=== PATIENT | male | born 1975 | race Caucasian/White ===

== ENCOUNTER 2019-09-04 22:42 | Emergency (ER) | payer OTHER, SELFPAY ==
[2019-09-04 22:43] VITALS: BP 177/113; PULSE 84; RESP 22; TEMP 36.9; BMI 29.0
--- NOTE | 2019-09-04 22:52 | RAD_ITS ---
STUDY: X-RAY CHEST REASON FOR EXAM: Male, 44 years old. Chest pain. TECHNIQUE: Frontal chest. COMPARISON: 07/27/2013 FINDINGS: No apparent pneumothorax, pneumonia, pleural effusion, or edema. Cardiac silhouette, celso and mediastinal contours are within normal limits. No acute osseous abnormality. No evidence of free air under the diaphragm. RAD/Chest 1 View (Portable) IMPRESSION: Negative chest radiograph. Electronically Signed: Munir Caba, at 23:05 EST Tel , Service support ,
--- NOTE | 2019-09-04 22:52 | EKG12_ITS ---
Test Reason : CP Blood Pressure : / mmHG Vent. Rate : 077 BPM Atrial Rate : 077 BPM P-R Int : 186 ms QRS Dur : 124 ms QT Int : 382 ms P-R-T Axes : 043 002 048 degrees QTc Int : 432 ms Normal sinus rhythm Non-specific intra-ventricular conduction delay Borderline ECG Confirmed by NADIRA MADRID, ANGI ([id number]), associate entertainment editor JAUN AMEZQUITA ([id number]) on 09/06/2019 1:49:38 PM Referred By: DC Confirmed By:ANGI WADDELL MD
[2019-09-04 23:11] LABS: Absolute Lymphocyte Count 2.13 X10^3/uL (0.83-4.51); Basophil# 0.04 X10^3/uL; Basophil% 0.8 % (0-1); Eosinophil# 0.18 X10^3/uL; Eosinophils% 3.5 % (0-5); Hematocrit 44.4 % (40-54); Hemoglobin 14.6 g/dL (13.0-16.5); Lymphocyte # 2.13 X10^3/ul (4.0); Lymphocyte % 41.5 % (19-41); Mean Corp Hgb Conc 32.9 g/dL (32-36); Mean Corpuscular Hgb 29.7 pg (27.0-32.0); Mean Corpuscular Volume 90.4 fL (80-94); Mean Platelet Vol. 8.8 fl (6.2-12.0); Monocyte# 0.72 X10^3/uL; NRBC Flagged by Analyzer 0 % (0-5); Neutrophil # 2.04 X10^3/uL (2.7-7.7); Neutrophil % 39.8 % (47-70); Platelet Count 279 K/mm3 (150-450); RBC Distribution Width CV 12.8 % (11.6-14.6); Red Blood Count 4.91 M/mm3 (4.6-6.2); White Blood Count 5.1 K/mm3 (4.4-11.0)
[2019-09-04 23:27] LABS: Anion Gap 5 (5-15); BUN 20 mg/dL (7-18); BUN/Creat Ratio 19.6 RATIO (10-20); Calcium,Total 8.6 mg/dL (8.5-10.1); Chloride 108 mmol/L (98-107); Creatinine, Serum 1.02 mg/dL (0.70-1.30); EST Glomerular Filtration Rate 84 mL/min (>60); Est Glom Filt Rate - Afr Amer 101 mL/min (>60); Estimated Creatinine Clearance 90.49 ml/min; Glucose 120 mg/dL (74-106); Potassium 3.5 mmol/L (3.5-5.1); Sodium Level 142 mmol/L (136-145)
[2019-09-04 23:45] VITALS: BP 139/96
--- NOTE | 2019-09-05 00:19 | ED.DCSUM_ITS ---
- ER Visit Summary Date of Service: 09/05/19 Chief Complaint: Chest pain History of Present Illness: The patient is a 44 M who reports 10 minutes of chest pain prior to arrival while he was driving home from a green party in [place]. He felt lightheaded and had a weird taste in his mouth. He never had this be fore. Denies any past medical history. Non-smoker. Physical Examination: Blood pressure 177/113. Otherwise vitals unremarkable. Heart regular. Lungs clear. Extremities nontender with no edema. Pulses strong and equal. Test Results: EKG showed sinus rhythm at a rate of 77. No sign of ischemia or infarction pattern. Chest x-ray normal. Troponin and d-dimer negative. CBC and BMP unremarkable. Emergency Department Course and Treatment: Patient presents with atypical chest pain. This is likely anxiety or vasovagal. His work-up was unremarkable. He is low risk for DVT and PE. No further imaging pursued. Patient declined repeat troponin. Risks were discussed. Patient will follow-up as an outpa tient. Return for any new or worsening issues. Treatment Plan: As above Disposition: Discharge Impression: 1. Chest pain This note was generated with [employer] dictation software. It may contain incorrect words, spelling, and punctuation that were not noted in review of the chart prior to signing ED Disposition - Plan for ED Patient: Referrals: Cindy Thompson DO [Primary Care Provider] -
--- NOTE | 2019-09-05 00:21 | ED.DEP ---
ED Disposition - Plan for ED Patient: Instructions: CHEST PAIN, Uncertain Cause Referrals: Cindy Thompson DO [Primary Care Provider] -
[2019-09-05 00:24] VITALS: BP 146/74; PULSE 81; RESP 18; O2SAT 99
--- NOTE | 2019-09-05 00:25 | ED.RN ---
THIS NURSE REVIEWED D/C INSTRUCTIONS WITH PT. PT VERBALIZED UNDERSTANDING OF INSTRUCTIONS. IV D/C. IV CATHETER INTACT. PT TOLERATED WELL. PT DENIES FURTHER NEEDS OR QUESTIONS AT THIS TIME.
== END 2019-09-05 00:25 | disposition home or self-care (01) ==
LOC: ED 23:06
PROVIDERS: Emergency Provider Emergency Medicine; Family Provider Internal Medicine; PCP Internal Medicine
DX: R07.89 Other chest pain (principal); R06.00 Dyspnea, unspecified; R05 Cough; R42 Dizziness and giddiness
CPT/HCPCS: 71045; 80048; 84484; 85025; 85379; 93005; 99284

== ENCOUNTER → 2022-04-25 | Outpatient (CLI) | payer OTHER, SELFPAY ==
[2022-04-25 15:30] LABS: Mucous, Urine 0 SEEN /hpf (<or=2+); Squamous Epithelial Cells - UA 0 SEEN /hpf (0-5)
[2022-04-25 17:30] LABS: Color, Urine Yellow (Yellow); Glucose, Dipstick Normal (Normal); Ketone-Dipstick Negative (Negative); Leukocyte Esterase-Dipstick 25 /ul (Negative); Nitrite-Dipstick Negative (Negative); Occult Blood-Urine 250 /ul (Negative); Protein-Dipstick 15 mg/dl (Negative); Specific Gravity, Urine 1.025 (1.002-1.030); Urine Bilirubin Dipstick Negative (Negative); Urine Clarity Clear (Clear); Urine Urobilinogen Normal (Normal)
[2022-04-25 17:48] LABS: Absolute Lymphocyte Count 1.45 X10^3/uL (0.83-4.51); Basophil# 0.04 X10^3/uL; Basophil% 0.6 % (0-1); Eosinophils% 1.4 % (0-5); Hematocrit 47.8 % (40-54); Hemoglobin 15.6 g/dL (13.0-16.5); Lymphocyte # 1.45 X10^3/ul (0.83-4.51); Lymphocyte % 20.3 % (19-41); Mean Corp Hgb Conc 32.6 g/dL (32-36); Mean Corpuscular Hgb 30.2 pg (27.0-32.0); Mean Corpuscular Volume 92.5 fL (80-94); Mean Platelet Vol. 9.1 fl (6.2-12.0); Monocyte# 0.52 X10^3/uL; Monocyte% 7.3 % (0-10); NRBC Flagged by Analyzer 0 % (0-5); Neutrophil # 4.99 X10^3/uL (2.7-7.7); Platelet Count 344 K/mm3 (150-450); RBC Distribution Width CV 12.6 % (11.6-14.6); RBC Distribution Width SD 43.3 fl (35.1-43.9); Red Blood Count 5.17 M/mm3 (4.6-6.2); White Blood Count 7.1 K/mm3 (4.4-11.0)
[2022-04-25 17:51] LABS: Bacteria 1+ /hpf (None Seen); Red Blood Cells-Urine > 100 SEEN /hpf (0-5); White Blood Cells 0-5 SEEN /hpf (0-5)
[2022-04-25 18:11] LABS: Microalbumin,Random Urine 32.7 mg/L (NO RANGE EST.); Microalbumin:Creatinine Ratio 21.1 mg/g CRE (<30 mg/g CRE)
[2022-04-25 18:13] LABS: ALB/GLOB Ratio 1.1 RATIO (0.9-2.4); AST(SGOT) 24 U/L (15-37); Alanine Aminotransfer ALT/SGPT 46 U/L (16-61); Albumin, Serum 4.1 g/dL (3.2-5.0); Alkaline Phosphatase 76 U/L (45-117); Anion Gap 6 (5-15); BUN 22 mg/dL (7-18); BUN/Creat Ratio 25.7 RATIO (10-20); Calcium,Total 9.5 mg/dL (8.5-10.1); Chloride 108 mmol/L (98-107); Cholesterol 231 mg/dL (200); Creatinine, Serum 0.86 mg/dL (0.70-1.30); EST Glomerular Filtration Rate 101 mL/min (>60); Est Glom Filt Rate - Afr Amer 123 mL/min (>60); Globulin 3.8 g/dL (2.2-4.2); Glucose 90 mg/dL (74-106); High Density Lipoprotein 59 mg/dL; Potassium 3.8 mmol/L (3.5-5.1); Protein, Total 7.9 g/dL (6.4-8.2); Sodium Level 140 mmol/L (136-145); Thyroid Stim Hormone (TSH) 1.57 uIU/mL (0.358-3.74); Triglycerides 199 mg/dL; Troponin-I HS 4 pg/mL (3.0-78.0); Very Low Density Lipoprotein 40 mg/dL (5-40)
== END | disposition home or self-care (01) ==
LOC: MTLAB 15:25
PROVIDERS: PCP Internal Medicine; Referring Provider Internal Medicine; Visit Provider Internal Medicine
DX: R03.0 Elevated blood-pressure reading, without diagnosis of hypertension (principal); R00.2 Palpitations
CPT/HCPCS: 36415; 80053; 80061; 81001; 82043; 82570; 84443; 84484; 85025

== ENCOUNTER → 2022-05-13 | Outpatient (CLI) | payer OTHER, SELFPAY | END | disposition home or self-care (01) | PROVIDERS: PCP Internal Medicine; Referring Provider Internal Medicine; Visit Provider Internal Medicine | DX: R00.2 Palpitations (principal) | CPT/HCPCS: 93225; 93226 ==

== ENCOUNTER → 2022-05-15 | Outpatient (CLI) | payer OTHER, SELFPAY ==
--- NOTE | 2022-05-15 09:02 | ECHOD_ITS ---
Reason For Study: PALPITATIONS Procedure This was a 2D Doppler, Color Flow transthoracic echocardiogram. The exam was of adequate technical quality. Exam performed in department. Left Ventricle Normal LV size. Left ventricular systolic function is normal. The estimated ejection fraction is 55 %. No evidence for diastolic dysfunction. No regional wall motion abnormalities noted. Right Ventricle Normal RV size. Normal systolic function. Atria Normal left atrium. Normal right atrium. No doppler evidence for ASD. Mitral Valve There is no mitral annular calcification. Normal mitral valve. Trivial mitral valve insufficiency. Tricuspid Valve Normal tricuspid valve. Trivial tricuspid valve insufficiency. Right ventricular systolic pressure estimated to be 22 mmHg. Aortic Valve Trisinus/trileaflet aortic valve. Normal aortic valve. 2D echocardiographic images appear compatible with aortic annular calcification. Pulmonic Valve The pulmonic valve is not well visualized. Trivial pulmonic valve insufficiency. Great Vessels Normal sized aortic root. Pericardium/Pleural No pericardial effusion. MMode/2D Measurements & Calculations LVIDd: 5.6 cm IVSd: 0.94 cm Ao root diam: 3.5 cm LVIDs: 4.3 cm LVPWd: 0.79 cm RVDd: 4.1 cm FS: 22.3 % LAV(MOD-sp4): 40.6 ml LVAd ap4: 39.5 cm2 SV(MOD-sp4): 72.8 ml LVLd ap4: 9.1 cm EDV(MOD-sp4): 141.3 ml EDV(sp4-el): 146.3 ml LVAs ap4: 24.9 cm2 LVLs ap4: 7.8 cm ESV(MOD-sp4): 68.5 ml ESV(sp4-el): 67.4 ml EF(MOD-sp4): 51.5 % EF(sp4-el): 53.9 % SV(sp4-el): 78.9 ml LA A4 area: 17.2 cm2 LA dimension(2D): 3.7 cm RA A4 area: 16.9 cm2 Time Measurements MV dec time: 0.27 sec Doppler Measurements & Calculations MV E max vahe: 53.2 cm/sec Lat Peak E' Vahe: 7.5 cm/sec Med Peak E' Vahe: 8.0 cm/sec MV A max vahe: 56.1 cm/sec E/E' lat: 7.1 E/E' med: 6.6 MV E/A: 0.95 MV V2 max: 70.2 cm/sec Ao V2 max: 130.9 cm/sec MV max P.0 mmHg MV dec slope: 224.5 cm/sec2 Ao max P.9 mmHg MV V2 mean: 47.1 cm/sec Ao V2 mean: 92.0 cm/sec MV mean P.96 mmHg Ao mean P.9 mmHg MV V2 VTI: 21.5 cm Ao V2 VTI: 27.2 cm LV V1 max: 77.9 cm/sec PA V2 max: 143.3 cm/sec TR max vahe: 215.2 cm/sec LV V1 max P.4 mmHg PA V2 mean: 92.9 cm/sec TR max P.5 mmHg LV V1 mean P.2 mmHg LV V1 mean: 51.2 cm/sec LV V1 VTI: 17.3 cm ECHO/Echo Complete Interpretation Summary Left ventricular systolic function is normal. The estimated ejection fraction is 55 %. Trivial mitral valve insufficiency. Trivial tricuspid valve insufficiency. 2D echocardiographic images appear compatible with aortic annular calcification . Trivial pulmonic valve insufficiency. Right ventricular systolic pressure estimated to be 22 mmHg. No evidence for diastolic dysfunction. Ordering Physician: Cindy Thompson Referring Physician: Cindy Thompson M.D. Performed By: Padmini Whiting RCS
== END | disposition home or self-care (01) ==
PROVIDERS: PCP Internal Medicine; Visit Provider Internal Medicine
DX: R00.2 Palpitations (principal)
CPT/HCPCS: 93306

== ENCOUNTER → 2023-07-02 | Outpatient (CLI) | payer OTHER, SELFPAY ==
--- NOTE | 2023-07-02 09:40 | ECHOD_ITS ---
Reason For Study: Syncope Procedure This was a 2D Doppler, Color Flow transthoracic echocardiogram. Myocardial strain analysis was performed in this exam to aid in the assessment of cardiac function. Exam performed in department. Left Ventricle Normal LV size. Mild global left ventricular systolic dysfunction. The left ventricular ejection fraction is 50 %. Stage 1 diastolic dysfunction. There is mild global hypokinesis of the left ventricle. Right Ventricle Normal RV size. Normal systolic function. Atria Normal left atrium. Normal right atrium. Mitral Valve Normal mitral valve. Tricuspid Valve Normal tricuspid valve. Aortic Valve Normal aortic valve. Trisinus/trileaflet aortic valve. Pulmonic Valve Normal pulmonic valve. Mild (1+) pulmonic valve insufficiency. Great Vessels Normal aortic root. The pulmonary artery is normal size. Normal inferior vena cava. Pericardium/Pleural No pericardial effusion. MMode/2D Measurements & Calculations LVIDd: 5.2 cm IVSd: 1.1 cm Ao root diam: 3.3 cm LVIDs: 4.0 cm LVPWd: 1.1 cm RVDd: 3.9 cm FS: 22.5 % LAV(MOD-bp): 39.7 ml LVAd ap4: 35.2 cm2 LVAd ap2: 30.6 cm2 LAV(MOD-bp) Indexed: 20.1 ml/m2 LVLd ap4: 8.6 cm LVLd ap2: 8.4 cm LAV(MOD-sp2): 44.4 ml EDV(MOD-sp4): 119.0 ml EDV(MOD-sp2): 93.2 ml LAV(MOD-sp4): 31.9 ml EDV(sp4-el): 122.1 ml EDV(sp2-el): 94.3 ml LVAs ap4: 22.5 cm2 LVAs ap2: 20.0 cm2 LVLs ap4: 7.1 cm LVLs ap2: 7.2 cm ESV(MOD-sp4): 59.6 ml ESV(MOD-sp2): 48.1 ml ESV(sp4-el): 60.6 ml ESV(sp2-el): 47.3 ml EF(MOD-sp4): 49.9 % EF(MOD-sp2): 48.3 % EF(sp4-el): 50.4 % SV(MOD-sp4): 59.4 ml SV(MOD-sp2): 45.0 ml SV(sp4-el): 61.5 ml LA dimension(2D): 3.6 cm LA A4 area: 14.3 cm2 RA A4 area: 12.6 cm2 TAPSE: 2.0 cm Time Measurements MV dec time: 0.32 sec Doppler Measurements & Calculations MV E max vahe: 41.9 cm/sec Lat Peak E' Vahe: 11.1 cm/sec Med Peak E' Vahe: 6.4 cm/sec MV A max vahe: 49.5 cm/sec E/E' lat: 3.8 E/E' med: 6.5 MV E/A: 0.84 MV dec slope: 130.0 cm/sec2 Ao V2 max: 106.2 cm/sec LV V1 max: 84.0 cm/sec Ao max P.5 mmHg LV V1 max P.8 mmHg Ao V2 mean: 83.9 cm/sec Ao mean P.0 mmHg Ao V2 VTI: 21.1 cm PA V2 max: 122.0 cm/sec PI end-d vahe: 103.6 cm/sec TR max vahe: 216.5 cm/sec TR max P.8 mmHg ECHO/Echo Complete Interpretation Summary Normal LV size. There is mild global hypokinesis of the left ventricle. Mild global left ventricular systolic dysfunction. The left ventricular ejection fraction is 50 %. Stage 1 diastolic dysfunction. The global longitudinal strain is mildly abnormal. The global longitudinal stra in = -15.8% (abnormal). Compared to previous study, the left ventricular systolic function has worsened.. Ordering Physician: Praveen Gayle Referring Physician: Cindy Thompson Performed By: Elle Cullen, TEA, RVT
== END | disposition home or self-care (01) ==
PROVIDERS: PCP Internal Medicine; Referring Provider Internal Medicine Cardiovascular Disease; Visit Provider Internal Medicine Cardiovascular Disease
DX: R55 Syncope and collapse (principal); I10 Essential (primary) hypertension
CPT/HCPCS: 93225; 93226; 93306

== ENCOUNTER → 2023-07-16 | Outpatient (CLI) | payer OTHER, SELFPAY | END | disposition home or self-care (01) | PROVIDERS: PCP Internal Medicine; Referring Provider Internal Medicine Cardiovascular Disease; Visit Provider Internal Medicine Cardiovascular Disease | DX: R55 Syncope and collapse (principal); I45.10 Unspecified right bundle-branch block; I49.3 Ventricular premature depolarization; I49.1 Atrial premature depolarization; I10 Essential (primary) hypertension | CPT/HCPCS: 93788 ==

== ENCOUNTER → 2023-10-22 | Outpatient (CLI) | payer SELFPAY ==
--- NOTE | 2023-10-22 07:20 | CT_ITS ---
STUDY: CT CHEST WITHOUT CONTRAST REASON FOR EXAM: Male, 48 years old. CAD, Overread only RADIATION DOSAGE (If Supplied By Facility): CTDIvol = ( 12.19 ) mGy, DLP = ( 243.79 ) mGycm TECHNIQUE: Transaxial imaging was performed without the administration of intravenous contrast material. Individualized dose optimization techniques were used for this CT. COMPARISON: No relevant priors. FINDINGS: CHEST Mild degree of dependent bibasilar atelectasis. There is no demonstrated pleural abnormality. There are mild calcifications of the coronary arteries. There are small lymph nodes within the mediastinum, which are normal in size and morphology most compatible with reactive lymph hyperplasia. Normal hilar regions. Normal unenhanced pulmonary arteries. Normal aorta arch and descending thoracic aorta. Normal osseous structures. There is no demonstrated abnormality of the visualized upper abdomen. CT/Limited Chest CT Cardiac Only IMPRESSION: Mild calcification of the coronary arteries. Mild degree of dependent bibasilar atelectasis. Electronically Signed: Mick Bustamante MD at 9:01 EST ,
--- OUTSIDE RECORDS SUMMARY | 2023-10-22 07:22 | XMS RPT_ITS | CCD ---
Author Name Unknown Address [address] [place] [address] Organization [facility] Care Team Providers Care Granite Cutter Apprentice Name Role Phone Cindy Carrasquillo Unavailable Adriano Hernadez Unavailable Freddy Ignacio Unavailable [phone] Rosamaria Bowser Unavailable Unavailable Unavailable Unavailable CINDY CARRASQUILLO DO Attending Unavailable CINDY CARRASQUILLO DO Consulting Unavailable CINDY CARRASQUILLO DO Primary Care Unavailable CINDY CARRASQUILLO DO Admitting Unavailable PROVIDER, UNKNOWN Consulting Unavailable Foreign DODimitrisCindy Unavailable [phone] Adriano Hernadez MD Unavailable Freddy Ignacio MD Unavailable Rosemarie Roe LPN Unavailable Unavailable Unavailable Unavailable Barbara Carrasquillo DOhleen Unavailable Wythe BLOCK CHOPPER HAND, Kayela Unavailable Unavailable ForeignCindy taylor DO Attending Unavailable ForeignCindy taylor DO Referring Unavailable Foreign DO Cindy Consulting Unavailable Unavailable Unavailable Allergies Allergy Classification Reported Allergen(s) Allergy Type Date of Onset Reaction(s) Facility (13 sources) Penicillins; Translations: [Penicillins] Allergy to substance (finding) [facility] Work Phone: Medications Completed/Discontinued Medications Medication Drug Class(es) Dates Sig (Normalized) Sig (Original) [id number] 200 actuat albuterol 0.09 mg/actuat metered dose inhaler (13 sources) beta2-Adrenergic Agonist Start: 05-25-2008 End: 07-07-2008 PROVENTIL HFA, 108 (90 Base)MCG/ACT (Inhalation Aerosol Solution) 2 (two) Aerosol Soln qid prn for 0 days Quantity: 1 {Aerosol_Soln} Refills: 3 Ordered: 25-May-2008 Michelle Avalos Start : 25-May-2008 End : 07-Jul-2008 Discontinued Problems Active Problems Problem Classification Problem Date Documented Da te Episodic/Chronic Allergic reactions (20 sources) Atopic dermatitis; Translations: [Atopic dermatitis] 11-05-2019 Chronic Anxiety disorders (20 sources) Anxiety; Translations: [Anxiety] 12-01-2019 Chronic Calculus of urinary tract (16 sources) History of calculus of kidney; Translations: [History of nephrolithiasis] 06-13-2022 Episodic Past or Other Problems Problem Classification Problem Date Documented Da te Episodic/Chronic Other gastrointestinal disorders (13 sources) Dysphagia, unspecified; Translations: [Dysphagia, unspecified dysphagia] Resolved: 11-05-2019 11-05-2019 Episodic Results Test Name Value Interpretation Reference Range Facil ity Vital Signs Date Time Vital Sign Value Performing Clinician Facility 11-01-2022 08:29-0500 Body height 175.26 cm [facility] Work Phone: 11-01-2022 08:29-0500 Body mass index (BMI) [Ratio] 28.69 kg/m2 [facility]; [facility] Work Phone: 11-01-2022 08:29-0500 Body surface area Derived from formula 2.04 m2 [facility]; [facility] Work Phone: 11-01-2022 08:29-0500 Body temperature 96.9 [degF] [facility]; [facility] Work Phone: 11-01-2022 08:29-0500 Body weight 88.11 kg [facility]; [facility] Work Phone: 11-01-2022 08:29-0500 Diastolic blood pressure 80 mm[Hg] [facility]; [facility] Work Phone: Encounters Encounter Date Encounter Type Care Provider Facility Start: 11-01-2022 End: 11-01-2022 Office outpatient visit 15 minutes Cindy Foreign DO Work Phone: [facility] Start: 10-31-2022 [facility] Start: 07-11-2022 End: 07-11-2022 Office outpatient visit 15 minutes Cindy Foreign DO Work Phone: [facility] Start: 06-13-2022 End: 06-13-2022 Office outpatient visit 25 minutes Cindy Foreign DO Work Phone: [facility] Start: 04-26-2022 End: 04-26-2022 ambulatory CINDY DO FOREIGN [facility] Start: 04-26-2022 End: 04-26-2022 Phone Encounter Cindy Foreign DO Work Phone: [facility] Start: 04-25-2022 End: 04-25-2022 Office outpatient visit 40 minutes Cindy Foreign DO Work Phone: [facility] Start: 04-25-2022 Review Cindy Mendezo n DO Work Phone: [facility] Start: 12-01-2019 End: 12-01-2019 Office outpatient visit 10 minutes Cindy Foreign [facility] Start: 11-05-2019 End: 11-05-2019 Office outpatient visit 25 minutes Cindy Foreign [facility] Start: 10-08-2019 End: 10-08-2019 Office outpatient new 20 minutes Cindy Carrasquillo [facility] Start: 07-27-2013 End: 07-27-2013 Patient encounter procedure Cindy Carrasquillo [facility] Start: 02-25-2013 End: 02-25-2013 Patient encounter procedure Cindy Foreign [facility] Start: 09-21-2012 End: 09-21-2012 Annotation/Addendum Cindy Carrasquillo [facility] Start: 09-18-2012 End: 09-18-2012 Office outpatient visit 15 minutes Cindy Carrasquillo [facility] Start: 09-01-2012 End: 09-01-2012 Office outpatient visit 15 minutes Cindy Foreign [facility] Start: 02-12-2012 End: 02-12-2012 Office outpatient visit 15 minutes Cindy Carrasquillo [facility] Start: 09-03-2011 End: 09-03-2011 Patient encounter procedure Cindy Carrasquillo [facility] Start: 02-21-2009 End: 02-21-2009 Refill Request Cindy Carrasquillo [facility] Start: 07-07-2008 End: 07-07-2008 Office outpatient visit 15 minutes Cindy Carrasquillo [facility] Start: 2008 End: 2008 Patient encounter procedure Cindy Carrasquillo [facility] Start: 05-25-2008 End: 05-30-2008 Patient encounter procedure Cindy Carrasquillo [facility] Start: 05-10-2008 End: 05-10-2008 Historical Summary Cindy Carrasquillo [facility] Procedures Date Procedure Procedure Detail Performing Clinician Start: 05-15-2022 End: 05-15-2022 Echo Complete Procedure Note: See Note; NOTES: [facility] [address] [place] [address] Echo Complete 05/15/22 09 MR#: [id number] Acct: [id number] Name: CYN HOLLOWAY Rep #: [id number] : 1975 46 From: Titi Song MD Attending Dr: Dr. Cindy Carrasquillo, Status: R EG CLI Ordering Dr: Cindy Carrasquillo DO Date: 05/15/22 Location: [facility] Sex: M C Admitted: Reason For Study: PALPITATIONS Procedure This was a 2D Doppler, Color Flow transthoracic echocardiogram. The exam was of adequate technical quality. Exam performed in department. Left Ventricle Normal LV size. Left ventricular systolic function is normal. The estimated ejection fraction is 55 %. No evidence for diastolic dysfunction. No regional wall motion abnormalities noted. Right Ventricle Normal RV size. Normal systolic function. Atria Normal left atrium. Normal right atrium. No doppler evidence for ASD. Mitral Valve There is no mitral annular calcification. Normal mitral valve. Trivial mitral valve insufficiency. Tricuspid Valve Normal tricuspid valve. Trivial tricuspid valve insufficiency. Right ventricular systolic pressure estimated to be 22 mmHg. Aortic Valve Trisinus/trileaflet aortic valve. Normal aortic valve. 2D echocardiographic images appear compatible with aortic annular calcification. Pulmonic Valve The pulmonic valve is not well visualized. Trivial pulmonic valve insufficiency. Great Vessels Normal sized aortic root. Pericardium/Pleural No pericardial effusion. MMode/2D Measurements Calculations LVIDd: 5.6 cm IVSd: 0.94 cm Ao root diam: 3.5 cm LVIDs: 4.3 cm LVPWd: 0.79 cm RVDd: 4.1 cm FS: 22.3 % LAV(MOD-sp4): 40.6 ml LVAd ap4: 39.5 cm2 SV(MOD-sp4): 72.8 ml LVLd ap4: 9.1 cm EDV(MOD-sp4): 141.3 ml EDV(sp4-el): 146.3 ml LVAs ap4: 24.9 cm2 LVLs ap4: 7.8 cm ESV(MOD-sp4): 68.5 ml ESV(sp4-el): 67.4 ml EF(MOD-sp4): 51.5 % EF(sp4-el): 53.9 % SV(sp4-el): 78.9 ml LA A4 area: 17.2 cm2 LA dimension(2D): 3.7 cm RA A4 area: 16.9 cm2 Time Measurements MV dec time: 0.27 sec Doppler Measurements Calculations MV E max vahe: 53.2 cm/sec Lat Peak E' Vahe: 7.5 cm/sec Med Peak E' Vahe: 8.0 cm/sec MV A max vahe: 56.1 cm/sec E/E' lat: 7.1 E/E' med: 6.6 MV E/A: 0.95 MV V2 max: 70.2 cm/sec Ao V2 max: 130.9 cm/sec MV max P.0 mmHg MV dec slope: 224.5 cm/sec2 Ao max P.9 mmHg MV V2 mean: 47.1 cm/sec Ao V2 mean: 92.0 cm/sec MV mean P.96 mmHg Ao mean P.9 mmHg MV V2 VTI: 21.5 cm Ao V2 VTI: 27.2 cm LV V1 max: 77.9 cm/sec PA V2 max: 143.3 cm/sec TR max vaeh: 215.2 cm/sec LV V1 max P.4 mmHg PA V2 mean: 92.9 cm/sec TR max P.5 mmHg LV V1 mean P.2 mmHg LV V1 mean: 51.2 cm/sec LV V1 VTI: 17.3 cm ECHO/Echo Complete Interpretation Summary Left ventricular systolic function is normal. The estimated ejection fraction is 55 %. Trivial mitral valve insufficiency. Trivial tricuspid valve insufficiency. 2D echocardiographic images appear compatible with aortic annular calcification. Trivial pulmonic valve insufficiency. Right ventricular systolic pressure estimated to be 22 mmHg. No evidence for diastolic dysfunction. Ordering Physician: Cindy Carrasquillo Referring Physician: Cindy Carrasquillo M.D. Performed By: Padmini Whiting RCS 05/15/221641 Date Titi Song MD CC: Dr. Cindy Carrasquillo DO Date Dictated: 05/15/22906 Date Transcribed: 05/15/221641 Cosmetic Sales Consultant: Signed Cindy Carrasquillo DO Work Phone: Start: 07-27-2013 End: 07-27-2013 Chest PA and Lateral Comments: See Note; NOTES: [facility] Imaging Services [address] [place] [id number] Radiology Report MR#: [id number] Acct: [id number] Name: CYN HOLLOWAY Rep #: [id number] : 1975 M 38 From: Mick Bustamante MD PCP: Sammie Martinez DO Status: REG CLI Study: Chest PA and Lateral Date of Exam: 07/27/13 Exam# [id number] Ordering Dr: Sammie Martinez DO STUDY: X-RAY CHEST REASON FOR EXAM: Male, 38 years old. 2 week history of cough. TECHNIQUE: PA and lateral views of the chest. COMPARISON: None. FINDINGS: The lungs are clear and expanded. Calcified old granulomatous disease. There is no demonstrated pleural abnormality. Normal size heart. Normal mediastinum and celso. Normal visualized pulmonary arteries. Normal visualized aortic arch and descending thoracic aorta. Normal visualized thoracic spine. Normal visualized ribs, clavicles, and shoulders. There is no demonstrated abnormality of the visualized soft tissue structures of the upper abdomen. IMPRESSION: No acute abnormality is present . Signed: Mick Bustamante M.D. July 27, 2013 at 10:12:47 AM EST [phone] Electronically Signed GP/GP If you are the referring physician and would like to consult with the radiologist who provided this interpretation, please contact Mick Bustamante M.D. at [phone]. If this radiologist is unavailable, you will be directed to another radiologist to assist. If you are a patient with a question regarding this report, please contact your referring physician directly. Professional Interpretation Provided By: Swidjit, Phone , These documents contain legally protected and confidential health information intended only for the use of the individual or entity named above. If you are not the intended recipient, you are hereby notified that any disclosure, copying, distribution, or other use of these documents is strictly prohibited. If you have received this information in error, please notify the sender immediately and arrange for the return or destruction of these documents. CC: Sammie Martinez DO Cosmetic Sales Consultant: Signed Sammie Martinez Work Phone: Plan of Treatment Date Care Activity Detail Author Start: 11-01-2022 Procedure Education Eprescribed prescriptions (G8553) [facility]; [facility] Work Phone: Start: 11-01-2022 Provider Instructions for Treatment Reviewed Diagnostic Tests [facility]; [facility] Work Phone: Start: 11-01-2022 Assay of thyroid stimulating hormone tsh TSH (05264) [facility]; [facility] Work Phone: Start: 07-11-2022 Procedure Education Eprescribed prescriptions (G8553) [facility]; [facility] Work Phone: Start: 07-11-2022 Provider Instructions for Treatment [facility]; [facility] Work Phone: Start: 07-11-2022 Assay of prostate specific antigen total PSA (PROSTATE SPECIFIC ANTIGEN) (V76.44) [facility]; [facility] Work Phone: Start: 07-11-2022 Assay of thyroid stimulating hormone tsh TSH (41812) [facility]; [facility] Work Phone: Start: 07-11-2022 Urnls dip stick/tablet reagent auto microscopy URINALYSIS, W/ MICRO (52622) [facility]; [facility] Work Phone: Start: 07-11-2022 Urine albumin quantitative MICROALBUMIN: CREATININE RATIO (44601) AND (98387) [facility]; [facility] Work Phone: Start: 07-11-2022 Comprehensive metabolic panel METABOLIC PANEL, COMPREHENSIVE (27010) [facility]; [facility] Work Phone: Start: 07-11-2022 Lipid panel LIPID PANEL (31462) [facility]; [facility] Work Phone: Start: 07-11-2022 Blood count complete auto&auto difrntl wbc CBC W/AUTO DIFF WBC (10817) [facility]; [facility] Work Phone: Start: 06-13-2022 Procedure Education Eprescribed prescriptions (G8553) [facility]; [facility] Work Phone: Start: 06-13-2022 Provider Instructions for Treatment [facility]; [facility] Work Phone: Start: 06-13-2022 Assay of aldosterone ALDOSTERONE (16260) [facility] Work Phone: Start: 06-13-2022 Assay of renin RENIN (97421) [facility]; [facility] Work Phone: Start: 06-13-2022 Metanephrines METANEPHRINES - URINE (64705) [facility]; [facility] Work Phone: Start: 06-13-2022 Catecholamines total urine CATECHOLAMINES TOTAL, URINE (74842) [facility]; [facility] Work Phone: Start: 06-13-2022 Assay of vanillylmandelic acid urine URINE VMA (14908) [facility]; [facility] Work Phone: Start: 04-26-2022 Culture bct isol&prsmptv id isolate ea urine URINE YULISA CULTURE-IDENTIFICATN (27675) [facility]; [facility] Work Phone: Start: 04-25-2022 Assay of troponin quantitative Troponin I (52520) [facility]; [facility] Work Phone: Start: 04-25-2022 Assay of thyroid stimulating hormone tsh TSH (70641) [facility]; [facility] Work Phone: Start: 04-25-2022 Urnls dip stick/tablet reagent auto microscopy URINALYSIS, W/ MICRO (81161) [facility]; [facility] Work Phone: Start: 04-25-2022 Urine albumin quantitative MICROALBUMIN: CREATININE RATIO (49458) AND (78245) [facility]; [facility] Work Phone: Start: 04-25-2022 Comprehensive metabolic panel METABOLIC PANEL, COMPREHENSIVE (22219) [facility]; [facility] Work Phone: Start: 04-25-2022 Lipid panel LIPID PANEL (90849) [facility]; [facility] Work Phone: Start: 04-25-2022 Blood count complete auto&auto difrntl wbc CBC W/AUTO DIFF WBC (59112) [facility]; [facility] Work Phone: Start: 04-25-2022 Procedure Education Eprescribed prescriptions (G8553) [facility]; [facility] Work Phone: Start: 12-01-2019 Provider Instructions for Treatment Continue Current Prescription(s) [facility] Work Phone: Start: 11-05-2019 Procedure Education Eprescribed prescriptions (G8553) [facility] Work Phone: Start: 11-05-2019 Provider Instructions for Treatment [facility] Work Phone: Start: 11-05-2019 Assay of thyroid stimulating hormone tsh TSH (67727) [facility]; [facility] Work Phone: Start: 11-05-2019 TSH Qn TSH (73970) [facility] Work Phone: Start: 11-05-2019 Comprehensive metabolic panel METABOLIC PANEL, COMPREHENSIVE (16562) [facility] Work Phone: Start: 11-05-2019 Blood count complete auto&auto difrntl wbc CBC W/AUTO DIFF WBC (04308) [facility] Work Phone: Start: 11-05-2019 Lipoprotein blood sj numbers & subclasses NMR Profile (91127) [facility] Work Phone: Start: 10-08-2019 Procedure Education Eprescribed prescriptions (G8553) [facility] Work Phone: Start: 10-08-2019 Provider Instructions for Treatment [facility] Work Phone: Start: 09-18-2012 Provider Instructions for Treatment [facility] Work Phone: Start: 09-01-2012 Provider Instructions for Treatment Follow up in 2 weeks [facility] Work Phone: Start: 09-01-2012 Renal function panel Renal function Panel (56129) [facility] Work Phone: Start: 09-01-2012 Blood count manual cell count each CBC with manual diff (81741) [facility] Work Phone: Start: 09-01-2012 Assay of thyroid stimulating hormone tsh TSH (20065) [facility]; [facility] Work Phone: Start: 09-01-2012 TSH Qn TSH (41791) [facility] Work Phone: Start: 02-12-2012 Provider Instructions for Treatment [facility] Work Phone: Start: 07-07-2008 Provider Instructions for Treatment [facility] Work Phone: Start: 2008 Provider Instructions for Treatment Diet and Exercise [facility] Work Phone: Start: 2008 Hepatic function panel HEPATIC FUNCTION PANEL (88427) [facility] Work Phone: Start: 2008 Lipid panel LIPID PANEL (71605) [facility] Work Phone: Start: 05-25-2008 Provider Instructions for Treatment Diet and Exercise [facility] Work Phone: [facility] Work Phone: [facility] Work Phone: [facility] Work Phone: [facility] Work Phone[facility] Work Phone: [facility] Work Phone: [facility]; [facility] Work Phone[facility]; [facility] Work Phone: [facility]; [facility] Work Phone: Payers Date Payer Category Payer Unknown [id number] 1975 Unknown [id number] 1975 Unknown [id number] Unknown [employer] Social History Date Type Detail Facility Alcohol Use Alcohol Use [facility] Work Phone: Instructions Note Date & Type Note Facility [facility]; [facility] Work Phone: Instructions Note Date & Type Note Facility [facility]; [facility] Work Phone: Instructions Note Date & Type Note Facility [facility]; [facility] Work Phone: Instructions Note Date & Type Note Facility [facility]; [facility] Work Phone: Instructions Note Date & Type Note Facility [facility]; [facility] Work Phone: Instructions Note Date & Type Note Facility [facility]; [facility] Work Phone: Instructions Note Date & Type Note Facility [facility]; [facility] Work Phone: Instructions Note Date & Type Note Facility [facility]; [facility] Work Phone: Summary Purpose Family History Unknown Family Member Name Dates Details Brother 1 Comments:healthy Status:Active Father Comments:father-- colon poly ps Status:Active Maternal Grandmother Comments:htn Status:Active Mother Comments:healthy Status:Active Unknown Family Member Name Dates Details Brother 1 Comments:healthy Status:Active Father Comments:father-- colon poly ps Status:Active Maternal Grandmother Comments:htn Status:Active Mother Comments:healthy Status:Active Unknown Family Member Name Dates Details Brother 1 Comments:healthy Status:Active Father Comments:father-- colon poly ps Status:Active Maternal Grandmother Comments:htn Status:Active Mother Comments:healthy Status:Active Unknown Family Member Name Dates Details Brother 1 Comments:healthy Status:Active Father Comments:father-- colon poly ps Status:Active Maternal Grandmother Comments:htn Status:Active Mother Comments:healthy Status:Active Unknown Family Member Name Dates Details Brother 1 Comments:healthy Status:Active Father Comments:father-- colon poly ps Status:Active Maternal Grandmother Comments:htn Status:Active Mother Comments:healthy Status:Active Unknown Family Member Name Dates Details Brother 1 Comments:healthy Status:Active Father Comments:father-- colon poly ps Status:Active Maternal Grandmother Comments:htn Status:Active Mother Comments:healthy Status:Active Unknown Family Member Name Dates Details Brother 1 Comments:healthy Status:Active Father Comments:father-- colon poly ps Status:Active Maternal Grandmother Comments:htn Status:Active Mother Comments:healthy Status:Active Unknown Family Member Name Dates Details Brother 1 Comments:healthy Status:Active Father Comments:father-- colon poly ps Status:Active Maternal Grandmother Comments:htn Status:Active Mother Comments:healthy Status:Active Unknown Family Member Name Dates Details Brother 1 Comments:healthy Status:Active Father Comments:father-- colon poly ps Status:Active Maternal Grandmother Comments:htn Status:Active Mother Comments:healthy Status:Active Unknown Family Member Name Dates Details Brother 1 Comments:healthy Status:Active Father Comments:father-- colon poly ps Status:Active Maternal Grandmother Comments:htn Status:Active Mother Comments:healthy Status:Active Advance Directives No Advanced Directives Records FoundNo Advanced Directives Records FoundNo Advanced Directives Records Found Instructions Name Dates Details Patient Instructions Indication:Anxiety Start:01-Dec-2019 Instruction Type:Provider Instructions for Treatment How to access health informa tion online Indication:Non-smoker Start:05-Nov-2019 Instruction Type:Patient Education How to access health informa tion online - Detail Indication:Non-smoker Start:05-Nov-2019 Instruction Type:Patient Education Patient Instructions Indication:Non-smoker Start:05-Nov-2019 Instruction Type:Provider Instructions for Treatment How to access health informa tion online Indication:Non-smoker Start:08-Oct-2019 Instruction Type:Patient Education How to access health informa tion online - Detail Indication:Non-smoker Start:08-Oct-2019 Instruction Type:Patient Education Patient Instructions Indication:Non-smoker Start:08-Oct-2019 Instruction Type:Provider Instructions for Treatment Patient Instructions Indication:Unspecified bacterial pneumonia Start:27-Jul-2013 Instruction Type:Provider Instructions for Treatment Patient Instructions Indication:Elevated blood pressure (not hypertension) Start:01-Sep-2012 Instruction Type:Provider Instructions for Treatment Name Dates Details Patient Instructions Indication:Anxiety Start:01-Dec-2019 Instruction Type:Provider Instructions for Treatment How to access health informa tion online Indication:Non-smoker Start:05-Nov-2019 Instruction Type:Patient Education How to access health informa tion online - Detail Indication:Non-smoker Start:05-Nov-2019 Instruction Type:Patient Education Patient Instructions Indication:Non-smoker Start:05-Nov-2019 Instruction Type:Provider Instructions for Treatment How to access health informa tion online Indication:Non-smoker Start:08-Oct-2019 Instruction Type:Patient Education How to access health informa tion online - Detail Indication:Non-smoker Start:08-Oct-2019 Instruction Type:Patient Education Patient Instructions Indication:Non-smoker Start:08-Oct-2019 Instruction Type:Provider Instructions for Treatment Patient Instructions Indication:Unspecified bacterial pneumonia Start:27-Jul-2013 Instruction Type:Provider Instructions for Treatment Patient Instructions Indication:Elevated blood pressure (not hypertension) Start:01-Sep-2012 Instruction Type:Provider Instructions for Treatment Additional Source Comments (unrecognized sect ion and content) No Status Records FoundNo Status Records FoundNo Status Records Found INFORMATION SOURCE (unrecogn ized section and content) DATE CREATED AUTHOR AUTHOR'S CHRIS ATION 04/28/2022 [facility] DATE CREATED AUTHOR AUTHOR'S ORGANJAE ATION 10/31/2022 [facility] FOR RECORDS PERTAINING TO PATIENTS WHO ARE OR HAVE BEEN ENROLLED IN A CHEMICAL DEPENDENCY/SUBSTANCEABUSE PROGRAM, SOME INFORMATION MAY BE OMITTED. This clinical summary was aggregated from multiple sources. Caution should be exercised in using it in the provision of clinical care. This summary normalizes information from multiple sources, and as a consequence, information in this document may materially change the coding, format and clinical context of patient data. In addition, data may be omitted in some cases. CLINICAL DECISIONS SHOULD BE BASED ON THE PRIMARY CLINICAL RECORDS. [employer] [facility]. provides no warranty or guarantee of the accuracy or completeness of information in this document.
--- NOTE | 2023-11-02 16:29 | CA.SCORE ---
Calcium Scoring Date of Study:: 10/22/23 Coronary Calcium Scoring: High-resolution Computed Tomographic imaging of the chest was performed on [ ], with particular attention paid to the coronary arteries. Images from the examination were analyzed for the presence and extent of coronary artery calcification , using coronary calcium quantification software. The patient tolerated the procedure well and there were no complications. The results of the coronary calcification analysis are provided below. Findings Coronary Artery Left Main (LM): 0 Left Anterior Descending (LAD): 0 Left Circumflex (LCX): 0 Right Coronary Artery (RCA): 0 Total Agatston Score: 0 Percentile Rankin Calcium Scoring Interpretation: Different methods to categorize the overall amount of coronary plaque. Overall amount CAC SIS Visual of coronary plaque P1 Mild -100 <2 1-2 vessels with mild amount of plaque P2 Moderate 101-300 3-4 1-2 vessels with moderate amount, 3 vessels with mild amount of plaque P3 Severe 301-999 5-7 3 vessels with moderate amount, 1 vessel with severe amount of plaque P4 Extensive >1000 >8 2-3 vessels with severe amount of plaque Conclusion: No atherosclerotic plaquing noted.
== END | disposition home or self-care (01) ==
LOC: CT 07:19
PROVIDERS: PCP Internal Medicine; Referring Provider Internal Medicine Cardiovascular Disease; Visit Provider Internal Medicine Cardiovascular Disease
DX: E78.5 Hyperlipidemia, unspecified (principal); I10 Essential (primary) hypertension; I25.10 Atherosclerotic heart disease of native coronary artery without angina pectoris; J98.11 Atelectasis
CPT/HCPCS: 75571; 76380

== ENCOUNTER → 2024-03-04 | Outpatient (CLI) | payer OTHER, SELFPAY ==
[2024-03-04 11:09] LABS: AST(SGOT) 29 U/L (15-37); Alanine Aminotransfer ALT/SGPT 44 U/L (16-61); Albumin, Serum 3.9 g/dL (3.2-5.0); Alkaline Phosphatase 63 U/L (45-117); Anion Gap 10 (5-15); BUN 26 mg/dL (7-18); BUN/Creat Ratio 20.5 RATIO (10-20); Bilirubin, Direct 0.09 mg/dL (0.00-0.30); Calcium,Total 9.6 mg/dL (8.5-10.1); Chloride 106 mmol/L (98-107); Cholesterol 234 mg/dL (200); Creatinine, Serum 1.27 mg/dL (0.70-1.30); EST Glomerular Filtration Rate 64 mL/min (>60); Est Glom Filt Rate - Afr Amer 77 mL/min (>60); Globulin 3.8 g/dL (2.2-4.2); Glucose 109 mg/dL (74-106); High Density Lipoprotein 63 mg/dL; Protein, Total 7.7 g/dL (6.4-8.2); Sodium Level 140 mmol/L (136-145); Triglycerides 89 mg/dL; Very Low Density Lipoprotein 18 mg/dL (5-40)
== END | disposition home or self-care (01) ==
PROVIDERS: PCP Internal Medicine; Referring Provider Internal Medicine Cardiovascular Disease; Visit Provider Internal Medicine Cardiovascular Disease
DX: I10 Essential (primary) hypertension (principal)
CPT/HCPCS: 36415; 80048; 80061; 80076

== ENCOUNTER → 2025-04-07 | Outpatient (CLI) | payer OTHER, SELFPAY ==
[2025-04-07 15:54] LABS: Anion Gap 13 (5-15); BUN 17 mg/dL (4-19); BUN/Creat Ratio 17.4 RATIO (10-20); Calcium,Total 9.4 mg/dL (7.6-11.0); Carbon Dioxide 22.7 mmol/L (21.0-32.0); Chloride 104 mmol/L (98-108); Glucose 111 mg/dL (70-99); Magnesium 2.2 mg/dL (1.5-2.2); Potassium 3.4 mmol/L (3.3-5.1)
== END | disposition home or self-care (01) ==
LOC: LAB 14:52
PROVIDERS: PCP Internal Medicine; Referring Provider Internal Medicine Cardiovascular Disease; Visit Provider Internal Medicine Cardiovascular Disease
DX: I10 Essential (primary) hypertension (principal); I49.1 Atrial premature depolarization
CPT/HCPCS: 36415; 80048; 83735

== ENCOUNTER → 2025-05-03 | Outpatient (CLI) | payer OTHER, SELFPAY ==
--- NOTE | 2025-05-03 08:09 | ECHOD_ITS ---
Reason For Study Reason For Study: ARRHYTHMIA Procedure This was a 2D Doppler, Color Flow transthoracic echocardiogram. Myocardial strain analysis was performed in this exam to aid in the assessment of cardiac function. Exam performed in department. Left Ventricle Normal LV size. The global longitudinal strain = -14.7% (abnormal). The left ventricular ejection fraction is 45 %. No regional wall motion abnormalities noted. Right Ventricle Normal RV size. Normal systolic function. Atria Normal left atrium. Normal right atrium. Mitral Valve Normal mitral valve. Tricuspid Valve Normal tricuspid valve. Mild tricuspid valve insufficiency. Aortic Valve Trisinus/trileaflet aortic valve. Pulmonic Valve Normal pulmonic valve. Great Vessels Normal aortic root. The pulmonary artery is normal size. Inferior vena cava collapse with respiration. Pericardium/Pleural No pericardial effusion. MMode/2D Measurements & Calculations LVIDd: 5.0 cm IVSd: 0.92 cm LVOT diam: 2.4 cm LVIDs: 3.9 cm LVPWd: 0.94 cm LVOT area: 4.6 cm2 RVDd: 5.0 cm FS: 22.4 % asc Aorta Diam: 3.4 cm LAV(MOD-bp): 47.0 ml LVAd ap4: 33.9 cm2 LAV(MOD-bp) Indexed: 23.5 ml/m2 LVLd ap4: 8.3 cm LAV(MOD-sp2): 48.7 ml EDV(MOD-sp4): 112.9 ml LAV(MOD-sp4): 41.0 ml EDV(sp4-el): 118.1 ml LVAs ap4: 23.1 cm2 LVLs ap4: 7.2 cm ESV(MOD-sp4): 63.2 ml ESV(sp4-el): 63.1 ml EF(MOD-sp4): 44.0 % EF(sp4-el): 46.6 % LVAd ap2: 32.8 cm2 SV(MOD-sp4): 49.7 ml SV(MOD-sp2): 43.7 ml LVLd ap2: 8.3 cm SI(MOD-sp4): 24.9 ml/m2 SI(MOD-sp2): 21.9 ml/m2 EDV(MOD-sp2): 106.9 ml EDV(sp2-el): 109.1 ml LVAs ap2: 23.5 cm2 LVLs ap2: 7.3 cm ESV(MOD-sp2): 63.2 ml ESV(sp2-el): 64.2 ml EF(MOD-sp2): 40.9 % SV(sp4-el): 55.0 ml Ao sinus diam: 3.[address] Junction: 3.0 cm LA dimension(2D): 3.8 cm LA A4 area: 17.5 cm2 RA A4 area: 15.1 cm2 TAPSE: 1.3 cm Time Measurements MV dec time: 0.24 sec Doppler Measurements & Calculations MV E max vahe: 58.4 cm/sec Lat Peak E' Vahe: 10.6 cm/sec Med Peak E' Vahe: 8.4 cm/sec MV A max vahe: 53.1 cm/sec E/E' lat: 5.5 E/E' med: 7.0 MV E/A: 1.1 MV dec slope: 240.3 cm/sec2 Ao V2 max: 112.2 cm/sec LV V1 max: 83.4 cm/sec Ao max P.0 mmHg LV V1 max P.8 mmHg Ao V2 mean: 84.9 cm/sec LV V1 mean P.8 mmHg Ao mean P.2 mmHg LV V1 mean: 66.5 cm/sec Ao V2 VTI: 25.5 cm LV V1 VTI: 17.8 cm AV (velocity ratio): 0.70 BASHIR(I,D): 3.2 cm2 BASHIR(V,D): 3.4 cm2 SV(LVOT): 81.5 ml PA V2 max: 120.4 cm/sec PI end-d vahe: 90.0 cm/sec TR max vahe: 205.4 cm/sec TR max P.9 mmHg ECHO/Echo Complete Interpretation Summary Normal LV size. The global longitudinal strain = -14.7% (abnormal). The left ventricular ejection fraction is 45 %. Ordering Physician: Praveen Gayle Referring Physician: Cindy Thompson M.D. Performed By: Angela Troncoso RDCS
== END | disposition home or self-care (01) ==
LOC: CVS 08:08
PROVIDERS: PCP Internal Medicine; Referring Provider Internal Medicine Cardiovascular Disease; Visit Provider Internal Medicine Cardiovascular Disease
DX: I49.3 Ventricular premature depolarization (principal)
CPT/HCPCS: 93225; 93226; 93306